=== PATIENT | male | born 1960 | race Caucasian/White ===

== ENCOUNTER → 2024-11-05 14:00 | Outpatient (BNVA) | payer OTHER, SELFPAY | PROVIDERS: Visit Provider Physician Assistant Medical | DX: T15.12XA Foreign body in conjunctival sac, left eye, initial encounter (principal); W20.8XXA Other cause of strike by thrown, projected or falling object, initial encounter; Z02.79 Encounter for issue of other medical certificate | CPT/HCPCS: 92002; 99203 ==